=== PATIENT | female | born 1945 ===

== ENCOUNTER 2024-04-09 16:25 | Inpatient (IN) | payer OTHER ==
[2024-04-09 19:45] VITALS: BP 125/73; PULSE 102; RESP 18; TEMP 98.9; O2SAT 93
[2024-04-09] MEDS ORDERED: ONDANSETRON HCL 4 MG/2 ML VIAL IVP PRN (21:15)
[2024-04-09] MEDS ORDERED: LOSA-382 PO (21:42)
[2024-04-09] MEDS ORDERED: ASCO500 PO (21:42)
[2024-04-09] MEDS ORDERED: POLY17PO47 PO (21:42)
[2024-04-09] MEDS ORDERED: MELA3TAB89 PO (21:42)
[2024-04-09] MEDS ORDERED: POTA-92 PO (21:42)
[2024-04-09] MEDS ORDERED: BUPR-344 PO (21:42)
[2024-04-09] MEDS ORDERED: CHOL25TA4 PO (21:42)
[2024-04-09] MEDS ORDERED: AMLO-257 PO (21:42)
[2024-04-09] MEDS ORDERED: PANT-31 PO (21:42)
[2024-04-09] MEDS ORDERED: FURO20 PO (21:42)
[2024-04-09] MEDS ORDERED: FERR325T27 PO (21:42)
[2024-04-09] MEDS ORDERED: ACET-2247 PO (21:42)
[2024-04-09] MEDS ORDERED: LACT1CAP79 PO (21:42)
[2024-04-09] MEDS ORDERED: SENN-376 PO (21:42)
[2024-04-09] MEDS ORDERED: DABI150C2 PO (21:42)
[2024-04-09] MEDS ORDERED: LORA-999 PO (21:42)
[2024-04-09 21:48] LABS: BASOPHILS % (AUTO) 0.6 % (0.0-2.0); EOSINOPHILS % (AUTO) 3.8 % (1.0-6.0); HEMATOCRIT 34.9 % (36-46); HEMOGLOBIN 11.7 g/dL (12.0-16.0); LYMPHOCYTES # (AUTO) 1.7 K/uL (1.0-4.8); LYMPHOCYTES % (AUTO) 22.8 % (22.0-44.0); MEAN CORPUSCULAR HEMOGLOBIN 28.7 pg (26.0-34.0); MEAN CORPUSCULAR HGB CONC 33.5 G/dL (31.0-37.0); MEAN CORPUSCULAR VOLUME 86 fL (80-100); MONOCYTES # (AUTO) 0.8 K/uL (0.1-1.0); NEUTROPHILS # (AUTO) 4.5 K/uL (1.8-7.7); NEUTROPHILS % (AUTO) 61.8 % (40.0-70.0); PLATELET COUNT (AUTO) 278 K/uL (150-450); RED BLOOD CELL COUNT(AUTO) 4.07 MIL/uL (4.00-5.20); RED CELL DISTRIBUTION WIDTH 15.6 % (11.5-14.5); WHITE BLOOD COUNT (AUTO) 7.3 K/uL (4.5-11.0)
[2024-04-09 22:04] LABS: CALCIUM, TOTAL 8.4 mg/dL (8.8-10.5); CREATININE 0.94 mg/dL (0.60-1.30); POTASSIUM 3.5 mmol/L (3.5-5.1)
[2024-04-09 22:09] LABS: ALBUMIN 2.9 g/dL (3.4-5.0); BILIRUBIN,TOTAL 0.4 mg/dL (0.1-1.0)
[2024-04-10] MEDS: CARBIDOPA/LEVODOPA 25-100 MG TABLET PO ONE (00:42)
[2024-04-10] MEDS: HEPARIN SODIUM,PORCINE 5,000 UNITS/ML VIAL SQ SCH (00:42)
[2024-04-10] MEDS ORDERED: ACETAMINOPHEN 325 MG TABLET PO PRN (03:00)
[2024-04-10 05:30] VITALS: BP 139/63; PULSE 95; RESP 20; TEMP 98.6; O2SAT 93
[2024-04-10 07:15] LABS: APPEARANCE,URINE TURBID (CLEAR); BILIRUBIN,URINE NEGATIVE (NEGATIVE); COLOR,URINE YELLOW (YELLOW); GLUCOSE, URINE (UA) NEGATIVE (NEGATIVE); KETONES,URINE TRACE mg/dL (NEGATIVE); LEUKOCYTE ESTERASE ,URINE LARGE (NEGATIVE); NITRATE,URINE POSITIVE (NEGATIVE); OCCULT BLOOD,URINE NEGATIVE (NEGATIVE); PH,URINE 5.5 (5.0-8.0); PROTEIN,URINE 30-70 mg/dL (NEGATIVE); SPECIFIC GRAVITIY, URINE 1.028 (1.003-1.030); UROBILINOGEN,URINE <=1.0 mg/dL (<=1.0)
[2024-04-10 07:30] LABS: RBC,URINE 0-2 /HPF (0-2)
[2024-04-10 07:31] LABS: BACTERIA,URINE Moderate /HPF (None Seen); SQUAMOUS EPITHELIAL CELL,UR Few /LPF (None Seen); URIC ACID CRYSTALS,URINE Moderate /LPF (None Seen); WBC,URINE 26-50 /HPF (0-5); YEAST,URINE Moderate /HPF (None Seen)
[2024-04-10 08:36] LABS: BASOPHILS % (AUTO) 1.1 % (0.0-2.0); EOSINOPHILS % (AUTO) 3.8 % (1.0-6.0); HEMATOCRIT 36.3 % (36-46); LYMPHOCYTES # (AUTO) 1.5 K/uL (1.0-4.8); LYMPHOCYTES % (AUTO) 24.3 % (22.0-44.0); MEAN CORPUSCULAR HEMOGLOBIN 28.5 pg (26.0-34.0); MEAN CORPUSCULAR HGB CONC 33.1 G/dL (31.0-37.0); MEAN CORPUSCULAR VOLUME 86 fL (80-100); MONOCYTES # (AUTO) 0.6 K/uL (0.1-1.0); MONOCYTES % (AUTO) 9.6 % (2.0-9.0); NEUTROPHILS # (AUTO) 3.7 K/uL (1.8-7.7); NEUTROPHILS % (AUTO) 61.2 % (40.0-70.0); PLATELET COUNT (AUTO) 269 K/uL (150-450); RED BLOOD CELL COUNT(AUTO) 4.23 MIL/uL (4.00-5.20); RED CELL DISTRIBUTION WIDTH 15.6 % (11.5-14.5); WHITE BLOOD COUNT (AUTO) 6.1 K/uL (4.5-11.0)
[2024-04-10 08:46] LABS: ANION GAP 12 mmol/L (8-16); CARBON DIOXIDE 26 mmol/L (22-29); CHLORIDE 101 mmol/L (98-107); GLOMERULAR FILTR. RATE CALC > 60 mL/min (>60); GLUCOSE,RANDOM 111 mg/dL (70-110); POTASSIUM 3.5 mmol/L (3.5-5.1); SODIUM SERUM 139 mmol/L (136-145); UREA NITROGEN, BLOOD 19 mg/dL (7-18)
[2024-04-10] MEDS ORDERED: -LIDODERM PATCH NOTE- MISC SCH (09:00)
[2024-04-10 09:46] VITALS: BP 128/63; PULSE 100; RESP 19; TEMP 98.7; O2SAT 96
[2024-04-10] MEDS: FERROUS SULFATE 325 MG EC TABLET PO SCH (09:57)
[2024-04-10] MEDS: LORazepam 0.5 MG TABLET PO SCH (09:58)
[2024-04-10] MEDS: CefTAZidime PENTAHYDRATE 1 GM in DEXTROSE 5%-WATER 50 ML IV SCH (09:58)
[2024-04-10] MEDS: LOSARTAN POTASSIUM 50 MG TABLET PO SCH (09:59)
[2024-04-10] MEDS: DOCUSATE SODIUM 100 MG CAPSULE PO SCH (09:59)
[2024-04-10] MEDS: POTASSIUM CHLORIDE 10 MEQ ER TABLET PO SCH (10:00)
[2024-04-10] MEDS: PANTOPRAZOLE SODIUM 40 MG DR TABLET PO SCH (10:00)
[2024-04-10] MEDS: DABIGATRAN ETEXILATE MESYLATE 150 MG CAPSULE PO SCH (10:00)
[2024-04-10] MEDS: POLYETHYLENE GLYCOL 3350 17 GM PACKET PO SCH (10:00)
[2024-04-10] MEDS: LIDOCAINE 5% TRANSDERMAL PATCH TD SCH (10:01)
[2024-04-10] MEDS: CHOLECALCIFEROL (VIT D3) 1,000 UNITS [25 MCG] TABLET PO SCH (10:01)
[2024-04-10] MEDS: BuPROPion HCL 75 MG TABLET PO SCH (10:01)
[2024-04-10] MEDS: SENNOSIDES 8.6 MG TABLET PO SCH (10:01)
[2024-04-10] MEDS: ASCORBIC ACID 500 MG TABLET PO SCH (10:07)
[2024-04-10] MEDS: FUROSEMIDE 20 MG TABLET PO SCH (10:07)
[2024-04-10] MEDS: AmLODIPine BESYLATE 5 MG TABLET PO SCH (10:07)
[2024-04-10 13:49] VITALS: BP 125/68; PULSE 100; RESP 19; TEMP 98; O2SAT 96
[2024-04-10] MEDS ORDERED: VENL-67 PO (13:56)
[2024-04-10 16:44] VITALS: BP 102/55; PULSE 100; RESP 20; TEMP 97.9; O2SAT 95
[2024-04-10 19:30] VITALS: BP 121/59; PULSE 97; RESP 18; TEMP 98.5; O2SAT 96
[2024-04-10] MEDS: MELATONIN 3 MG TABLET PO SCH (20:34)
[2024-04-10] MEDS: -LIDODERM PATCH NOTE- MISC SCH (21:47)
[2024-04-11 05:30] VITALS: BP 119/67; PULSE 90; RESP 20; TEMP 98.5; O2SAT 93
[2024-04-11 08:21] VITALS: BP 130/60; PULSE 90; RESP 18; TEMP 97.8; O2SAT 93
[2024-04-11] MEDS: BuPROPion HCL XL 150 MG ER TABLET PO SCH (09:24)
[2024-04-11] MEDS: CARBIDOPA/LEVODOPA 25-100 MG TABLET PO SCH (12:58)
[2024-04-11 15:00] VITALS: BP 100/46; PULSE 97; RESP 18; TEMP 98.8; O2SAT 94
[2024-04-11 20:00] VITALS: BP 103/52; PULSE 87; RESP 18; TEMP 98.9; O2SAT 93
[2024-04-12 05:27] VITALS: BP 150/55; PULSE 101; RESP 18; TEMP 97.7; O2SAT 93
[2024-04-12 08:00] VITALS: BP 143/79; PULSE 95; RESP 18; TEMP 98.5
[2024-04-12 20:20] VITALS: BP 122/62; PULSE 88; RESP 20; TEMP 98.3; O2SAT 93
[2024-04-13 04:19] VITALS: BP 113/59; PULSE 87; RESP 20; TEMP 99; O2SAT 96
[2024-04-13 09:26] LABS: BASOPHILS % (AUTO) 0.6 % (0.0-2.0); EOSINOPHILS % (AUTO) 3.7 % (1.0-6.0); HEMATOCRIT 35.6 % (36-46); HEMOGLOBIN 11.8 g/dL (12.0-16.0); LYMPHOCYTES # (AUTO) 1.1 K/uL (1.0-4.8); LYMPHOCYTES % (AUTO) 18.6 % (22.0-44.0); MEAN CORPUSCULAR HEMOGLOBIN 28.8 pg (26.0-34.0); MEAN CORPUSCULAR HGB CONC 33.2 G/dL (31.0-37.0); MEAN CORPUSCULAR VOLUME 87 fL (80-100); MONOCYTES # (AUTO) 0.6 K/uL (0.1-1.0); MONOCYTES % (AUTO) 9.7 % (2.0-9.0); NEUTROPHILS % (AUTO) 67.4 % (40.0-70.0); PLATELET COUNT (AUTO) 201 K/uL (150-450); RED BLOOD CELL COUNT(AUTO) 4.11 MIL/uL (4.00-5.20); RED CELL DISTRIBUTION WIDTH 15.5 % (11.5-14.5); WHITE BLOOD COUNT (AUTO) 5.9 K/uL (4.5-11.0)
[2024-04-13 09:46] LABS: ANION GAP 8 mmol/L (8-16); CALCIUM, TOTAL 8.5 mg/dL (8.8-10.5); CARBON DIOXIDE 26 mmol/L (22-29); CHLORIDE 103 mmol/L (98-107); GLOMERULAR FILTR. RATE CALC > 60 mL/min (>60); GLUCOSE,RANDOM 124 mg/dL (70-110); POTASSIUM 3.4 mmol/L (3.5-5.1); SODIUM SERUM 137 mmol/L (136-145); UREA NITROGEN, BLOOD 15 mg/dL (7-18)
[2024-04-13 16:15] VITALS: BP 140/62; PULSE 89; RESP 20; TEMP 97.5; O2SAT 97
[2024-04-13 20:14] VITALS: BP 133/64; PULSE 95; RESP 24; TEMP 98.1; O2SAT 96
[2024-04-14] MEDS: ACETAMINOPHEN 325 MG TABLET PO PRN (02:11)
[2024-04-14 05:00] VITALS: BP 143/73; PULSE 83; RESP 22; TEMP 98.3; O2SAT 96
[2024-04-14 08:16] VITALS: BP 148/84; PULSE 99; RESP 20; TEMP 98.4; O2SAT 97
[2024-04-14] MEDS ORDERED: LIDO700A15 TP (10:14)
== END 2024-04-14 13:13 | DRG 698 ==
LOC: 6N 19:00 → 6S 04-11 15:19
PROVIDERS: ADMIT Internal Medicine; ATTEND Internal Medicine
DX: T83.511A Infection and inflammatory reaction due to indwelling urethral catheter, initial encounter (principal); J18.9 Pneumonia, unspecified organism; F32.2 Major depressive disorder, single episode, severe without psychotic features; I50.30 Unspecified diastolic (congestive) heart failure; R45.851 Suicidal ideations; G93.49 Other encephalopathy; Y95 Nosocomial condition; D63.8 Anemia in other chronic diseases classified elsewhere; E66.9 Obesity, unspecified; E87.6 Hypokalemia; F60.3 Borderline personality disorder; G47.33 Obstructive sleep apnea (adult) (pediatric); I11.0 Hypertensive heart disease with heart failure; I48.91 Unspecified atrial fibrillation; R41.89 Other symptoms and signs involving cognitive functions and awareness; Z85.09 Personal history of malignant neoplasm of other digestive organs; Z86.711 Personal history of pulmonary embolism; Z86.718 Personal history of other venous thrombosis and embolism; Z86.73 Personal history of transient ischemic attack (TIA), and cerebral infarction without residual deficits; Z88.0 Allergy status to penicillin; Z88.8 Allergy status to other drugs, medicaments and biological substances
CPT/HCPCS: 71046; 80048; 80053; 81001; 83735; 85025; 87081; 87086; 87186; 87481; 92610; 97110; 97163; 97167; 97530; 97535; J0713; J1644; J7060; 36415-L1; 36415-TC